=== PATIENT | female | born 1960 | race Caucasian/White ===

== ENCOUNTER 2017-08-21 13:16 | Emergency (ER) | payer BC ==
[2017-08-21] MEDS ORDERED: ASPIRIN 81 MG TABLET, CHEWABLE PO ONE (13:55)
--- NOTE | 2017-08-21 13:59 | ER Document Report ---
ED Medical Screen (RME) - General Chief Complaint: High Blood Pressure Stated Complaint: HEADACHE/DIZZINESS Time Seen by Provider: 08/21/17 13:55 Mode of Arrival: Ambulatory Information source: Patient Notes: 57-year-old female presents with complaints of dizziness lightheadedness nausea palpitations. Patient denies any fevers or chills denies any actual chest pain notes the palpitations worsen at nighttime. Patient unsure if this may be anxiety related Notes symptoms of dizziness have worsened since being switched on her medications I have greeted and performed a rapid initial assessment of this patient. A comprehensive ED assessment and evaluation of the patient, analysis of test results and completion of the medical decision making process will be conducted by additional ED providers. PHYSICAL EXAMINATION: GENERAL: Well-appearing, well-nourished and in no acute distress. HEAD: Atraumatic, normocephalic. EYES: Pupils equal round extraocular movements intact, conjunctiva are normal. ENT: Nares patent NECK: Normal range of motion LUNGS: No respiratory distress Musculoskeletal: Normal range of motion NEUROLOGICAL: Normal speech, normal gait. PSYCH: Normal mood, normal affect. SKIN: Warm, Dry, normal turgor, no rashes or lesions noted. TRAVEL OUTSIDE OF THE [place] IN LAST 30 DAYS: No - Related Data Allergies/Adverse Reactions: morphine [Morphine] Allergy (Verified 08/21/17 13:57) Vomiting Past Medical History - Social History Chew tobacco use (# tins/day): No Frequency of alcohol use: None Drug Abuse: None - Past Medical History Cardiac Medical History: Denies: Hx Heart Attack, Hx Hypertension - TREATED FOR HYPERTENSION IN THE PAST Pulmonary Medical History: Denies: Hx Asthma Neurological Medical History: Denies: Hx Cerebrovascular Accident, Hx Seizures Renal/ Medical History: Denies: Hx Peritoneal Dialysis GI Medical History: Denies: Hx Hepatitis, Hx Hiatal Hernia, Hx Ulcer Infectious Medical History: Denies: Hx Hepatitis Past Surgical History: Reports: Hx Hysterectomy. Denies: Hx Mastectomy, Hx Open Heart Surgery, Hx Pacemaker Physical Exam - Vital signs Vitals: Temp Pulse Resp BP Pulse Ox 97.9 F 77 20 141/91 H 98 08/21/17 13:20 08/21/17 13:20 08/21/17 13:20 08/21/17 13:20 08/21/17 13:20 Course - Vital Signs Vital signs: Temp Pulse Resp BP Pulse Ox 97.9 F 77 20 141/91 H 98 08/21/17 13:20 08/21/17 13:20 08/21/17 13:20 08/21/17 13:20 08/21/17 13:20 Doctor's Discharge - Discharge Referrals: LOCALMD,NO [Primary Care Provider] - Follow up as needed
[2017-08-21] MEDS ORDERED: MECLIZINE HCL 25 MG TABLET PO ONE (14:32)
--- NOTE | 2017-08-21 14:44 | ER Document Report ---
ED General <ARMANDO MEZA - Last Filed: 08/21/17 16:23> - General Mode of Arrival: Ambulatory Information source: Patient TRAVEL OUTSIDE OF THE [place] IN LAST 30 DAYS: No <MARIKA SINGH - Last Filed: 08/23/17 15:29> - General Chief Complaint: High Blood Pressure Stated Complaint: HEADACHE/DIZZINESS Time Seen by Provider: 08/21/17 13:55 Notes: Patient is a 57-year-old female with diabetes presents to the emergency department complaining of multiple symptoms including elevated blood pressure, headache, nausea, dizziness, heart palpitations onset yesterday. Patient states these symptoms were onset after she got home from travelling to [place]. Patient describes her headache as dull, located over the top of her head and states her dizziness is worse with movement. She states she decided to take her blood pressure and found it to be 141/104 and at a later time 156/101 which she states is abnormal for her. She states she decided to take an old prescription of Amlodipine in attempt to relieve her symptoms. Patient also complains of diarrhea that was onset 2 days ago. She states she has not had any diarrhea today. Patient denies vomiting. Patient states she was told to discontinue Lisinopril and Amlodipine by her new PCP, Dr. Letty Lind, for fear of the prescriptions ruining her liver. She is now prescribed Glyburide and Atorvastatin. (MARIKA SINGH) - Related Data Allergies/Adverse Reactions: morphine [Morphine] Allergy (Verified 08/21/17 13:57) Vomiting Past Medical History - General Information source: Patient - Social History Smoking Status: Never Smoker Chew tobacco use (# tins/day): No Frequency of alcohol use: None Drug Abuse: None Family History: Reviewed & Not Pertinent Patient has suicidal ideation: No Patient has homicidal ideation: No Past Surgical History: Reports: Hx Hysterectomy <MARIKA SINGH - Last Filed: 08/23/17 15:29> Review of Systems - Review of Systems Constitutional: No symptoms reported EENT: No symptoms reported Cardiovascular: See HPI, Palpitations, Dizziness Respiratory: No symptoms reported Gastrointestinal: See HPI, Diarrhea, Nausea Genitourinary: No symptoms reported Female Genitourinary: No symptoms reported Musculoskeletal: No symptoms reported Skin: No symptoms reported Hematologic/Lymphatic: No symptoms reported Neurological/Psychological: See HPI, Headaches -: Yes All other systems reviewed and negative <MARIKA SINGH - Last Filed: 08/23/17 15:29> Physical Exam - General General appearance: Appears well, Alert In distress: None - HEENT Head: Normocephalic, Atraumatic Eyes: Normal Conjunctiva: Normal Extraocular movements intact: Yes - Lateral gaze nystagmus, worse with head movement. Pupils: PERRL Neck: Normal, Other - Posterior cervical muscles tender to palpation - Respiratory Respiratory status: No respiratory distress Chest status: Nontender Breath sounds: Normal Chest palpation: Normal - Cardiovascular Rhythm: Regular Heart sounds: Normal auscultation Murmur: No Friction rub: No Gallop: None auscultated - Abdominal Inspection: Obese Distension: No distension Bowel sounds: Normal Tenderness: Nontender Organomegaly: No organomegaly - Back Back: Normal - Extremities General upper extremity: Normal ROM General lower extremity: Normal ROM - Neurological Neuro grossly intact: Yes Cognition: Normal Orientation: AAOx4 [place] Coma Scale Eye Opening: Spontaneous [place] Coma Scale Verbal: Oriented [place] Coma Scale Motor: Obeys Commands [place] Coma Scale Total: 15 Speech: Normal - Psychological Associated symptoms: Normal affect, Normal mood - Skin Skin Temperature: Warm Skin Moisture: Dry Skin Color: Normal <MARIKA SINGH - Last Filed: 08/23/17 15:29> - Vital signs Vitals: Temp Pulse Resp BP Pulse Ox 97.9 F 77 20 141/91 H 98 08/21/17 13:20 08/21/17 13:20 08/21/17 13:20 08/21/17 13:20 08/21/17 13:20 Course - Laboratory Result Diagrams: 08/21/17 14:25 08/21/17 14:25 - Diagnostic Test Radiology reviewed: Image reviewed, Reports reviewed - Normal chest x-ray and normal CT scan of the head - EKG Interpretation by [facility] EKG shows normal: Sinus rhythm, [place], Intervals, QRS Complexes. abnormal: ST-T Waves - Borderline lateral T abnormalities Rate: Normal - 73 Rhythm: NSR [place]/QRS: LAHB/LAFB <ARMANDO MEZA - Last Filed: 08/21/17 16:23> - Laboratory Result Diagrams: 08/21/17 14:25 08/21/17 14:25 <MARIKA SINGH - Last Filed: 08/23/17 15:29> - Re-evaluation Re-evalutation: 08/21/17 16:15 Patient reports a dramatic improvement in the dizzy sensation with rapid head movement after the Antivert. (ARMANDO MEZA) - Vital Signs Vital signs: Temp Pulse Resp BP Pulse Ox 97.9 F 93 16 136/99 H 96 08/21/17 13:20 08/21/17 17:18 08/21/17 17:18 08/21/17 17:18 08/21/17 17:18 - Laboratory Laboratory results interpreted by me: 08/21/17 14:25 WBC 12.6 H Hgb 15.8 H RDW 14.1 H Discharge <ARMANDO MEZA - Last Filed: 08/21/17 16:23> <MARIKA SINGH - Last Filed: 08/23/17 15:29> - Discharge Clinical Impression: Vertigo Tension type headache Qualifiers: Headache chronicity pattern: episodic headache Intractability: not intractable Qualified Code(s): G44.219 - Episodic tension-type headache, not intractable High blood pressure Qualifiers: Hypertension type: essential hypertension Qualified Code(s): I10 - Essential ( primary) hypertension Condition: Stable Disposition: HOME, SELF-CARE Additional Instructions: Vertigo: You have experienced an episode of vertigo -- a whirling dizziness which may be accompanied by nausea and vomiting or staggering. Vertigo is often caused by an irritation of the inner ear, in which case it is called labyrinthitis. It can also be a symptom of a degenerating inner ear, nerve damage, or brain injury. Your physician has evaluated you to determine whether any further testing is necessary. Vertigo is often treated with dramamine or meclizine. These medications are helpful, but stronger medication may be needed if you are vomiting. Rest in bed. You should not drive or operate machinery until completely better. It may take one to three weeks for recovery. If there are new symptoms, such as decreased hearing or vision, severe headache, weakness or faintness, or confusion, call the physician. Take the medication as prescribed for the dizziness. Drink plenty fluids get plenty of rest. Take Tylenol and ibuprofen for your headache if needed. Check your blood pressure twice daily and record the results. Follow-up with your doctor this week if your dizziness or your blood pressure are not improving. RETURN TO THE EMERGENCY ROOM IF ANY NEW OR WORSENING SYMPTOMS. Prescriptions: Meclizine HCl [Antivert 25 mg Tablet] 25 mg PO ASDIR PRN #30 tablet PRN Reason: Referrals: LOCALMD,NO [NO LOCAL MD] - Follow up as needed Scribe Attestation: 08/21/17 15:34 I personally performed the services described in the documentation, reviewed and edited the documentation which was dictated to the scribe in my presence, and it accurately records my words and actions. (ARMANDO MEZA) Yeniibe Documentation - Scribe Written by Cindy:: Cindy Montero, 08/21/2017 14:58 acting as scribe for :: Connie <MARIKA SINGH - Last Filed: 08/23/17 15:29>
[2017-08-21 14:53] LABS: ABSOLUTE BASOPHILS # (AUTO) 0.1 10^3/uL (0.0-0.2); ABSOLUTE EOSINOPHILS # (AUTO) 0.2 10^3/uL (0.0-0.6); ABSOLUTE LYMPHOCYTES (AUTO) 3.3 10^3/uL (0.5-4.7); ABSOLUTE MONOCYTES (AUTO) 0.9 10^3/uL (0.1-1.4); ABSOLUTE NEUT (AUTO) 8.1 10^3/uL (1.7-8.2); BASOPHILS % (AUTO) 0.5 % (0-2); EOSINOPHILS % (AUTO) 1.9 % (0-6); HEMATOCRIT 46.4 % (36.0-47.0); HEMOGLOBIN 15.8 g/dL (12.0-15.5); LYMPHOCYTES % (AUTO) 26.3 % (13-45); MEAN CORPUSCULAR HGB CONC 34.1 g/dL (32.0-36.0); MEAN CORPUSCULAR VOLUME 91 fl (80-97); MONOCYTES % (AUTO) 6.9 % (3-13); PLATELET COUNT 270 10^3/uL (150-450); RED BLOOD COUNT 5.11 10^6/uL (3.72-5.28); RED CELL DISTRIBUTION WIDTH 14.1 % (11.5-14.0); SEGMENTED NEUTROPHILS % (AUTO) 64.4 % (42-78); TOTAL CELLS COUNTED % (AUTO) 100 %; WHITE BLOOD COUNT 12.6 10^3/uL (4.0-10.5)
[2017-08-21 15:16] LABS: ALANINE AMINOTRANSFERASE 29 U/L (9-52); ALBUMIN 4.4 g/dL (3.5-5.0); ALKALINE PHOSPHATASE 117 U/L (38-126); ANION GAP 13 (5-19); ASPARTATE AMINO TRANSFERASE 25 U/L (14-36); BILIRUBIN,DIRECT 0.3 mg/dL (0.0-0.4); BILIRUBIN,TOTAL 0.5 mg/dL (0.2-1.3); BLOOD UREA NITROGEN 12 mg/dL (7-20); CALCIUM 10.2 mg/dL (8.4-10.2); CARBON DIOXIDE 28 mmol/L (22-30); CHLORIDE 104 mmol/L (98-107); CREATINE KINASE 66 U/L (30-135); GLUCOSE 94 mg/dL (75-110); POTASSIUM 4.3 mmol/L (3.6-5.0); SODIUM 144.6 mmol/L (137-145); TOTAL PROTEIN 7.5 g/dL (6.3-8.2)
--- NOTE | 2017-08-21 15:24 | RADIOLOGY REPORT (SQ) ---
EXAM DESCRIPTION: CHEST SINGLE VIEW COMPLETED DATE/TIME: 08/21/2017 2:47 pm REASON FOR STUDY: palpitations COMPARISON: None. EXAM PARAMETERS: NUMBER OF VIEWS: One view. TECHNIQUE: Single frontal radiographic view of the chest acquired. RADIATION DOSE: NA LIMITATIONS: None. FINDINGS: LUNGS AND PLEURA: No opacities, masses or pneumothorax. No pleural effusion. MEDIASTINUM AND HILAR STRUCTURES: No masses. Contour normal. HEART AND VASCULAR STRUCTURES: Heart normal in size. Normal vasculature. BONES: No acute findings. HARDWARE: None in the chest. OTHER: No other significant finding. IMPRESSION: NO ACUTE RADIOGRAPHIC FINDING IN THE CHEST. TECHNICAL DOCUMENTATION: JOB ID: [id number] [employer]- All Rights Reserved Reading location - IP/workstation name: [email or web address]
--- NOTE | 2017-08-21 15:26 | RADIOLOGY REPORT (SQ) ---
EXAM DESCRIPTION: CT HEAD WITHOUT COMPLETED DATE/TIME: 08/21/2017 2:58 pm REASON FOR STUDY: dizzineess COMPARISON: None. TECHNIQUE: Axial images acquired through the brain without intravenous contrast. Images reviewed wi th bone, brain and subdural windows. Images stored on PACS. All CT scanners at this facility use dose modulation, iterative reconstruction, and/or weight based d osing when appropriate to reduce radiation dose to as low as reasonably achievable (ALARA). [facility]: Dose Right [facility]: CareDose [facility]: Dose Right [facility]: Teradose 4D [facility]: WinAd RADIATION DOSE: CT Rad equipment meets quality standard of care and radiation dose reduction techniq ues were employed. CTDIvol: 53.2 mGy. DLP: 964 mGy-cm. mGy. LIMITATIONS: None. FINDINGS: VENTRICLES: Normal size and contour. CEREBRUM: No masses. No hemorrhage. No midline shift. No evidence for acute infarction. Normal gra y/white matter differentiation. No areas of low density in the white matter. CEREBELLUM: No masses. No hemorrhage. No alteration of density. No evidence for acute infarction. EXTRAAXIAL SPACES: No fluid collections. No masses. ORBITS AND GLOBE: No intra- or extraconal masses. Normal contour of globe without masses. CALVARIUM: No fracture. PARANASAL SINUSES: No fluid or mucosal thickening. SOFT TISSUES: No mass or hematoma. OTHER: No other significant finding. IMPRESSION: NORMAL BRAIN CT WITHOUT CONTRAST. EVIDENCE OF ACUTE STROKE: NO. COMMENT: Quality ID # [id number]: Final reports with documentation of one or more dose reduction techniques (e.g., Automated exposure control, adjustment of the mA and/or kV according to patient size, use of iterative reconstruction technique) TECHNICAL DOCUMENTATION: JOB ID: [id number] [employer]- All Rights Reserved Reading location - IP/workstation name: [email or web address]
[2017-08-21 16:56] VITALS: BP 136/99
--- NOTE | 2017-08-21 19:11 | EKG REPORT ---
SEVERITY:- ABNORMAL ECG - SINUS RHYTHM LEFT ANTERIOR FASCICULAR BLOCK CONSIDER ANTERIOR INFARCT BORDERLINE T ABNORMALITIES, LATERAL LEADS : Confirmed by: Ruth Ann Brennan MD 21-Aug-2017 19:10:17
== END 2017-08-21 16:32 | disposition home or self-care (01) ==
LOC: ER 13:16
DX: I10 Essential (primary) hypertension (principal); G44.219 Episodic tension-type headache, not intractable; R42 Dizziness and giddiness; R11.0 Nausea; R00.2 Palpitations; R19.7 Diarrhea, unspecified
CPT/HCPCS: 36415; 70450; 71045; 80053; 82550; 82553; 84443; 84484; 85025; 93005; 93010; 99284